=== PATIENT | female | born 1960 | race Caucasian/White ===

== ENCOUNTER → 2017-09-07 | Outpatient (CLI) | payer OTHER ==
[~2017-09-07] MED LIST: AMBI10TA PO; AMLO5TAB2 PO; BUPR150CR PO; DICL75TA PO; ECASA81 PO; ESTRGEL TOPICAL; HYDR12.56 PO; LEVO.15 PO; OXYC1TAB63 PO; PROG100C PO; PROM25TA10 PO; ROSU1TAB6 PO
[2017-09-07 11:23] LABS: AUTOMATED NEUTROPHIL # 4.2 TH/MM3 (1.8-7.7); BASOPHIL # 0.1 TH/MM3 (0-0.2); BASOPHIL % 0.8 % (0.0-2.0); EOSINOPHIL # 0.1 TH/MM3 (0-0.4); EOSINOPHIL % 0.9 % (0.0-4.0); HEMATOCRIT 40.6 % (35.0-46.0); HEMOGLOBIN 13.6 GM/DL (11.6-15.3); LYMPH % 28.6 % (9.0-44.0); MEAN CELL VOLUME 89.7 FL (80.0-100.0); MEAN CORPUSCULAR HEMOGLOBIN 30.1 PG (27.0-34.0); MEAN CORPUSCULAR HGB CONC 33.5 % (32.0-36.0); MEAN PLATELET VOLUME 7.3 FL (7.0-11.0); MONO % 7.6 % (0.0-8.0); MONOCYTE # 0.5 TH/MM3 (0-0.9); NEUT % 62.1 % (16.0-70.0); PLATELET COUNT 320 TH/MM3 (150-450); RED BLOOD COUNT 4.53 MIL/MM3 (4.00-5.30); RED CELL DISTRIBUTION WIDTH 12.9 % (11.6-17.2); WHITE BLOOD COUNT 6.8 TH/MM3 (4.0-11.0)
[2017-09-07 11:29] LABS: BACTERIA, URINE RARE /hpf; BILIRUBIN, URINE NEG (NEG); BLOOD, URINE NEG (NEG); GLUCOSE,URINE NEG (NEG); HYALINE CAST, URINE 1 /lpf (RARE); KETONE, URINE NEG (NEG); MUCUS URINE FEW /lpf (OCC); NITRITE,URINE NEG (NEG); SQUAMOUS EPITHELIAL CELL URINE 1 /hpf (0-5); URINE COLOR YELLOW (YELLW/STRAW); URINE LEUKOCYTE ESTERASE NEG (NEG)
[2017-09-07 11:38] LABS: BICARBONATE 30.9 MEQ/L (21.0-32.0); CALCIUM 8.8 MG/DL (8.5-10.1); CREATININE 0.84 MG/DL (0.50-1.00)
--- NOTE | 2017-09-08 09:42 | EKG ---
Date Performed: 09/07/2017 Time Performed: 10:56:57 PTAGE: 56 years EKG: Sinus rhythm POSSIBLE ANTERIOR MYOCARDIAL INFARCTION, OF INDETERMINATE AGE ABNORMAL ECG NO PREVIOUS TRACING DOCTOR: Viktor Gamino Interpretating Date/Time 09/08/2017 09:38:37
== END ==
LOC: CPRE 10:28
PROVIDERS: ATTEND Obstetrics & Gynecology
DX: Z01.812 Encounter for preprocedural laboratory examination (principal); Z01.810 Encounter for preprocedural cardiovascular examination; D25.9 Leiomyoma of uterus, unspecified
CPT/HCPCS: 36415; 80048; 81001; 85025; 93005

== ENCOUNTER 2017-09-13 05:34 | Observation (INO) | payer OTHER ==
--- NOTE | 2017-09-12 09:59 | MH ---
cc: Jessika Duran MD DATE OF ADMISSION: 09/13/2017 PREOPERATIVE DIAGNOSIS: Multiple small symptomatic fibroid, desirous of LAVH-BSO so that she can proceed with hip placements. HISTORY OF PRESENT CONDITION: The patient is a very pleasant 56-year-old white female, para 2, with ongoing heavy jo/postmenopausal bleeding and pelvic pressure who desires definitive therapy. She has to get a hip replacement in the eminent future and wants to have this procedure done first before she has an artificial joint. She is to Dr. Xu Diaz. She has had 2 children, both healthy. Her general health is excellent. She does not report any significant symptoms of incontinence or problems with her bowel habits. Her family history is essentially noncontributory. She has had normal Pap smears, normal mammography. Her medication is the EstroGel pump, Ambien, amlodipine 5 mg for mild hypertension, aspirin and diclofenac, both of which she has not been taking recently. She also takes progesterone right now while she is still with her uterus, a mild lipid lowering agent, Synthroid 150 mcg and Wellbutrin. As mentioned, she exercises regularly. She has had a colonoscopy in 2013. She has a history of a significant cardiac murmur, and her EKG is discussed with Dr. Toro Summers, and it was felt with her clinical lack of symptomatology she was a candidate for surgery. PRIMARY CARE PROVIDER: Adriana Daigle MD PHYSICAL EXAMINATION: GENERAL: She is a well developed, well nourished white female in no acute distress. VITAL SIGNS: Her height is 5 feet 5 inches. Her weight is 156. Her blood pressure is 140/70. HEENT AND NECK: She has no thyroid enlargement. LUNGS: Clear. HEART: Rate and rhythm are regular. BREASTS: Without dominant mass, nipple discharge, skin retraction or adenopathy. ABDOMEN: Benign. She has no CVA tenderness, no adenopathy, no hernias or masses. GYNECOLOGIC: Perineum is estrogenized. Vault is elevated. Cervix is multiparous. Uterus is mildly enlarged and irregular. Adnexa are not palpable. Guaiac is negative. EXTREMITIES: Unremarkable. IMPRESSION: Symptomatic perimenopausal uterine fibroids, desirous of definitive therapy. Risks, benefits, expectations, alternatives have been described in detail. Please note, she does have also, when I listed to her heart, a 2-3/6 ascending murmur over the mitral valve, consistent with her clinical history. PLAN: To proceed with a supracervical hysterectomy. This is in contrast to the original decision to do an LAVH-BSO. This was after additional consulting with Ivania regarding her desire to keep her cervix and minimize her recovery. She has never had any abnormal cervical Pap smears. The fibroids in question are submucosal and small. We have talked about the concerns of morcellation and intend to either use a bag intra-abdominally or to morcellate the uterus as it has been moved from the slightly enlarged left lower quadrant incision outside the abdomen with a non powered morcellate technique. Risks, benefits, expectations and alternatives have been described in detail. She has signed consent and is scheduled for Tuesday, 09/13. Thank you very much. Jessika Duran MD PPC/DL , 09:19 AM , 09:57 AM
[~2017-09-13] VITALS: Ht 165.1 cm; Wt 69.7 kg
[~2017-09-13 05:34] MED LIST changes: -OXYC1TAB63 PO; -PROM25TA10 PO
[2017-09-13] MEDS ORDERED: SODIUM CHLORID 0.9% 500 ML IV PRN (06:15)
[2017-09-13] MEDS ORDERED: ACETAMINOPHEN 1000 MG/100 ML 100 ML IV PRN (06:15)
[2017-09-13] MEDS ORDERED: POVIDONE IODINE 5% (ANTISEPSIS KIT) 4 APPLICATIONS EACH NARE PRN (06:15)
[2017-09-13] MEDS ORDERED: LACTATED RINGER'S 1000 ML IV PRN (06:15)
[2017-09-13] MEDS ORDERED: CHLORHEXIDINE GLUCONATE 2 % 1 PACK (2 CLOTHS) TOPICAL PRN (06:15)
[2017-09-13] MEDS ORDERED: METOPROLOL TARTRATE 25 MG TAB PO PRN (06:15)
[2017-09-13] MEDS ORDERED: ACETAMINOPHEN 1000 MG/100 ML 0 ML IV ONE (06:58)
[2017-09-13] MEDS ORDERED: fentaNYL CITRATE 250 MCG/5 ML AMP ONE (06:59)
[2017-09-13] MEDS ORDERED: VASOPRESSIN 20 UNITS/ML VIAL ONE (07:13)
[2017-09-13] MEDS ORDERED: LIDOCAINE 1%/EPINEPHrine 1:100,000 SOLN 30 ML VIAL ONE (07:13)
[2017-09-13] MEDS ORDERED: MIDAZOLAM HCL 2 MG/2 ML VIAL ONE (07:27)
[2017-09-13] MEDS ORDERED: BUPIVACAINE LIPOSOME PF 1.3% 20 ML VIAL ONE (07:38)
[2017-09-13] MEDS ORDERED: BUPIVACAINE/EPINEPHRINE 0.25% PF 10 ML VIAL ONE (07:39)
[2017-09-13] MEDS ORDERED: ESTROGENS CONJUGATED VAG CREA 15 APPL/30 GM TUBE ONE (07:50)
[2017-09-13] MEDS ORDERED: SODIUM CHLORIDE 0.9% 20 ML VIAL ONE (07:50)
[2017-09-13] MEDS ORDERED: SODIUM CHLORIDE 0.9% FLUSH 10 ML FLUSH IV FLUSH PRN (11:15)
[2017-09-13] MEDS ORDERED: ONDANSETRON HCL 4 MG/2 ML VIAL IVP PRN ×2 (11:15)
[2017-09-13] MEDS: DOCUSATE SODIUM 100 MG CAP PO SCH ×2 (11:15→22:31)
--- NOTE | 2017-09-13 11:16 | PD.OP ---
Operative Report Date of Surgery: Sep 13, 2017 Preoperative Diagnosis: perimenopausal bleeding due to submucosal fibroids other intramural and subserosal fibroids Postoperative Diagnosis: large vascular peduculated fibroid better than uterus Procedure: LAVHBSO enterocele repair cystoscopy bilateral retroperitoneal dissection Anesthesia: GET Surgeon: Jessika Duran Experimental Technician(s): Kerry Operation and Findings: very large and vasculer fibroid of concern subtotal approach contraindicated vascular/vessicular structures tracking along both IP ligaments requiring retroperintoneal dissections to excise completely back bleeding from fibroids during Lscope part of case Uterus morcellated at vaginal opening as it presented to the operative field post hyst lscope showed no bleeding cystoscopy showed normal bladder and good flow from both ureters urine clear EBL 200 Jessika Duran MD Sep 13, 2017 11:16
[2017-09-13] MEDS ORDERED: DO NOT ADM ANY ANTICOAGULANT DRUGS PRN (11:34)
[2017-09-13] MEDS ORDERED: PILL SPLITTER OTHER PRN (11:45)
[2017-09-13] MEDS ORDERED: ONDANSETRON HCL 4 MG/2 ML VIAL IV ONE (12:00)
[2017-09-13] MEDS ORDERED: GLYCOPYRROLATE 1 MG/5 ML SYRINGE IV PUSH ONE (12:00)
[2017-09-13] MEDS ORDERED: LACTATED RINGER'S 1000 ML INJ 2,000 ML IV ONE (12:00)
[2017-09-13] MEDS ORDERED: oxyCODONE/ACETAMINOPHEN 5 MG/325 MG TAB PO PRN (12:00)
[2017-09-13] MEDS ORDERED: NEOSTIGMINE 5 MG/5 ML SYRINGE IV PUSH ONE (12:00)
[2017-09-13] MEDS ORDERED: LIDOCAINE HCL 1% PF 5 ML SYRINGE OTHER ONE (12:00)
[2017-09-13] MEDS ORDERED: SODIUM CHLORIDE 0.9% 20 ML VIAL IV ONE (12:00)
[2017-09-13] MEDS ORDERED: DEXAMETHASONE SOD PHOS 4 MG/ML VIAL IV ONE (12:00)
[2017-09-13] MEDS ORDERED: LORazepam 0.5 MG TAB PO PRN (12:00)
[2017-09-13] MEDS ORDERED: diphenhydrAMINE HCL 25 MG CAP PO PRN (12:00)
[2017-09-13] MEDS ORDERED: ONDANSETRON INJ 8 MG in DEXTROSE 5% IN WATER INJ 50 ML IV PUSH PRN ×2 (12:00)
[2017-09-13] MEDS ORDERED: KETOROLAC TROMETHAMINE 30 MG/ML (IVP) VIAL IV PUSH ONE (12:00)
[2017-09-13] MEDS ORDERED: PROPOFOL 200 MG/20 ML AMP IV ONE (12:00)
[2017-09-13] MEDS ORDERED: ePHEDrine/NS 25 MG/5 ML SYRINGE IV ONE (12:00)
[2017-09-13] MEDS ORDERED: ESTRADIOL 0.1 MG/24 HR PATCH T-DERMAL ONE (12:00)
[2017-09-13] MEDS ORDERED: ROCURONIUM INJ 50 MG/5 ML SYRINGE IV PUSH ONE (12:00)
[2017-09-13] MEDS ORDERED: PHENYLEPH/NS 1000 MCG/10 ML SYR IV ONE (12:00)
[2017-09-13] MEDS ORDERED: ceFAZolin INJ 1,000 MG VIAL IV ONE (12:00)
--- NOTE | 2017-09-13 12:21 | MP ---
cc: Jessika Duran MD DATE OF OPERATION: 09/13/2017 PREOPERATIVE DIAGNOSIS: Perimenopausal bleeding and known submucosal intramural and subserosal fibroids. POSTOPERATIVE DIAGNOSIS: Perimenopausal bleeding and known submucosal intramural and subserosal fibroids with very large pedunculated right fundal fibroid. PROCEDURE: Laparoscopic assisted vaginal hysterectomy with bilateral salpingo-oophorectomy with bilateral retroperitoneal dissections, enterocele obliteration and cystoscopy. ANESTHESIA: General. SURGEON: Dr. Duran. MIDDLEWARE CONSULTANT: Kerry FINDINGS: Examination under anesthesia revealed what is felt to be a small globular uterus that had some mild ascent. Upon entering the peritoneal cavity, it was noted that there was a large fibroid bigger than the uterus coming off the uterus on the right cornua area. This was highly vascular. There were varicosities with vesicles that extended into the infundibulopelvic ligaments on each side. It was felt that these needed to be removed with the specimen, so retroperitoneal dissections on each side guaranteed removal of this portion of the IP ligament in its entirety with avoiding the ureters. It was not felt that any morcellation of this uterus was appropriate internally and that the cervix should not be left, so the procedure was then converted to LAVH. Successive pedicles were taken down to the level of the uterosacrals with some considerable back bleeding from the fibroids when grasped for traction. When attention was directed below, the remainder of the hysterectomy removing the uterus from its attachments was completed expediently but some time was taken to remove the uterus through the vaginal vault. Indeed, it was eventually bivalved to remove. The enterocele was obliterated, the cuff closed and when the abdomen was reevaluated, the retroperitoneal dissections were hemostatic. The cuff was closed with the enterocele obliteration and bowel was away from any of the field. Irrigation was performed, and then visualization while removal of the pneumoperitoneum was performed. At this point, the bladder was filled, the catheter removed and the scope placed in the bladder, showing no iatrogenic or intrinsic pathology with flow from both ureteral orifices. The Mclean was replaced. The umbilical hernia was repaired at the closure site in the midline, and the other 2 sites were closed with a single stitch. Estimated blood loss was 200 mL. Sponge, instrument, needle counts were correct. She tolerated the procedure well. PROCEDURE: Patient was taken to the operating room, identified as Ivania Diaz. She had received gabapentin and Ofirmev, 2 g of Ancef and antiemetic prior to coming into the operating room. A timeout was performed with all in attendance. This was after she was placed under general anesthesia by Dr. Mattson. [facility], so she was comfortable with her positioning, and then she was prepped and draped in the usual sterile fashion with Mclean catheter placed sterilely by the surgeon. A single-tooth tenaculum was placed on the cervix, an acorn tenaculum placed on the os, and attention directed to the abdomen. The umbilical hernia was noted. The incision was made inferior to this and the 5 mm trocar and sleeve placed under direct visualization. A pneumoperitoneum was created and systematic evaluation of the abdominal and pelvic contents was performed with the findings as noted above. Right round ligament was transected close to the sidewall to encompass majority of the broad ligament and then this was taken down to the lower uterine segment where the bladder was scarred densely against the lower uterine segment. Carefully dissection in layers was performed to push the bladder down inferiorly and medially. Then attention was directed to the right sidewall. A window peritoneum was incised, and the infundibulopelvic ligament was skeletonized on this side all the way back near to the pelvic brim where the varicosities had ceased to exist, and this was gently elevated, isolated and transected. There was some oozing from this, and the Harmonic scalpel was switched out, and then this was easily addressed, and successful pedicles were then taken down to the level of the uterosacral. Back bleeding was noted from traction on the fibroids. This was repeated on the left side, which again showed the varicosities traveling up the infundibulopelvic ligament with these vesicles up close to the pelvic brim. The retroperitoneal dissection was performed to make sure no other structures were involving in the pedicle creation, which was then transected, and then this was taken down to where the round ligament on that side had been transected, and this was taken down to the uterosacral. The bladder was sharply dissected downward, and then attention was directed to below. The cervix was circumcised with the Bovie on cutting after being infiltrated with lidocaine, and the posterior cul-de-sac was entered sharply. The anterior cul-de-sac was entered with a little bit more difficulty but bladder was intact and preserved. Successive pedicles were clamped, cut and suture ligated, the first being the uterosacrals, which were tagged for later plication, and then successive pedicles were taken up to where the uterus was entirely free in the abdominal cavity. Some time was spent attempting to remove this uterus through the vaginal outlet. It was necessary to cut the uterus in the midline in half and remove some of the intramural fibroids from below but eventually was removed in its entirety. The peritoneal closure to obliterate the enterocele was performed in the classic [place] fashion. The cuff was closed in the vertical fashion to facilitate vaginal length. Attention was redirected to the abdomen where the pneumoperitoneum was reinstilled and copious irrigation was performed. The retroperitoneal dissections were all clean with good hemostasis. The enterocele closure was clean. The bowel was far away from surgical field, and pneumoperitoneum was released under direct visualization, and then the umbilical hernia was reapproximated in standard fashion and the skin was closed with Monocryl. Then attention was directed below where the bladder was filled with the remaining fluid from the suction stock hanger and the laparoscope placed in the bladder with systematic evaluation showing a healthy bladder with good ureteral flow from both sides. The Mclean catheter was then replaced. She was placed in dorsal supine position, awoken, and taken to the recovery room in stable condition. MD ROSENDO Burns/CRISTY , 11:32 AM , 12:20 PM MARICEL
[2017-09-13 12:45] VITALS: BP 111/61; PULSE 91; RESP 18; TEMP 97.6
[2017-09-13] MEDS: HYDROmorphone HCL PF 2 MG/ML VIAL IV PUSH PRN ×2 (14:03→18:11)
[2017-09-13] MEDS ORDERED: PROMETHAZINE HCL 25 MG TAB PO PRN (14:30)
[2017-09-13] MEDS ORDERED: LACTATED RINGER'S 1000 ML INJ 1,000 ML IV SCH (14:30)
[2017-09-13] MEDS ORDERED: ONDANSETRON ODT 4 MG TAB PO PRN (14:30)
[2017-09-13 15:55] VITALS: BP 121/68; PULSE 89; RESP 18; TEMP 98.1
--- NOTE | 2017-09-13 17:35 | HHI.PR ---
Subjective Remarks Doing well, pain is well controlled, eating well. having significant nausea and some burning around catheter Objective Vital Signs Vital Signs Date Time Temp Pulse Resp B/P (MAP) Pulse Ox O2 Delivery O2 Flow Rate FiO2 09/13/17 17:23 Nasal Cannula 1.50 09/13/17 12:45 97.6 91 18 111/61 (78) 09/13/17 12:30 97.7 92 18 105/60 (75) 98 Nasal Cannula 2 09/13/17 12:15 82 18 104/59 (74) 100 Nasal Cannula 2 09/13/17 12:00 91 18 106/55 (72) 100 Nasal Cannula 2 09/13/17 11:45 95 17 105/65 (78) 100 Nasal Cannula 2 09/13/17 11:32 97.5 95 17 108/59 (75) 100 Nasal Cannula 2 09/13/17 06:15 97.4 80 20 140/78 (98) 100 I/O 09/12/17 09/12/17 09/12/17 09/13/17 09/13/17 09/13/17 07:00 15:00 23:00 07:00 15:00 23:00 Intake Total 2250 ml Output Total 750 ml Balance 1500 ml Intake IV Total 2250 ml Output Urine Total 550 ml Estimated Blood Loss 200 ml Objective Remarks color great Chest is clear, regular rate and rhythm. Abdomen is soft and non-distended. Incisions clean and dry. perineum scant drainage/bleeding urine clear and copious Ext no CCE. A/P Assessment and Plan Night of surgery Doing well Home in am once nausea resolved and return to office in two weeks. counseled on activity explained surgery with photographs Jessika Duran MD Sep 13, 2017 17:35
[2017-09-13 19:28] VITALS: BP 102/51; PULSE 96; RESP 18; TEMP 97.8; O2SAT 94
[2017-09-13] MEDS: SODIUM CHLORIDE 0.9% FLUSH 10 ML FLUSH IV FLUSH SCH (21:00)
[2017-09-13] MEDS ORDERED: ZOLPIDEM TARTRATE 5 MG TAB PO PRN (21:00)
[2017-09-13] MEDS: oxyCODONE/ACETAMINOPHEN 5 MG/325 MG TAB PO PRN (22:31)
[2017-09-13 23:44] VITALS: BP 97/41; PULSE 98; RESP 16; TEMP 98.1; O2SAT 95
[2017-09-14] MEDS: oxyCODONE/ACETAMINOPHEN 5 MG/325 MG TAB PO PRN (05:16)
[2017-09-14 05:24] VITALS: BP 99/56; PULSE 91; RESP 17; TEMP 98.3; O2SAT 93; O2SAT 95
[2017-09-14 05:49] LABS: AUTOMATED NEUTROPHIL # 5.4 TH/MM3 (1.8-7.7); BASOPHIL % 0.3 % (0.0-2.0); EOSINOPHIL % 0.1 % (0.0-4.0); HEMATOCRIT 28.6 % (35.0-46.0); LYMPH % 22.2 % (9.0-44.0); LYMPHOCYTE # 1.8 TH/MM3 (1.0-4.8); MEAN CELL VOLUME 89.4 FL (80.0-100.0); MEAN CORPUSCULAR HEMOGLOBIN 31.3 PG (27.0-34.0); MEAN PLATELET VOLUME 7.1 FL (7.0-11.0); MONO % 9.4 % (0.0-8.0); MONOCYTE # 0.7 TH/MM3 (0-0.9); PLATELET COUNT 248 TH/MM3 (150-450); RED CELL DISTRIBUTION WIDTH 13.2 % (11.6-17.2); WHITE BLOOD COUNT 7.9 TH/MM3 (4.0-11.0)
[2017-09-14 06:18] LABS: CALCIUM 6.9 MG/DL (8.5-10.1); CREATININE 0.64 MG/DL (0.50-1.00)
[2017-09-14] MEDS: SODIUM CHLORIDE 0.9% FLUSH 10 ML FLUSH IV FLUSH SCH (07:07)
[2017-09-14 08:00] VITALS: BP 94/52; PULSE 71; RESP 16; TEMP 98.1; O2SAT 96
[2017-09-14] MEDS ORDERED: PROM25TA10 PO (08:36)
[2017-09-14] MEDS ORDERED: OXYC1TAB63 PO (08:36)
[2017-09-14] MEDS: DOCUSATE SODIUM 100 MG CAP PO SCH (10:57)
== END 2017-09-14 11:25 | disposition home or self-care (01) ==
LOC: HSDC 05:34 → HSDI 11:11 → H1EA 12:42
PROVIDERS: ADMIT Obstetrics & Gynecology; ATTEND Obstetrics & Gynecology
DX: N92.4 Excessive bleeding in the premenopausal period (principal); D25.0 Submucous leiomyoma of uterus; D25.1 Intramural leiomyoma of uterus; D25.2 Subserosal leiomyoma of uterus; K42.9 Umbilical hernia without obstruction or gangrene; N81.5 Vaginal enterocele; I10 Essential (primary) hypertension; K21.9 Gastro-esophageal reflux disease without esophagitis
CPT/HCPCS: 00840; 57268; 58554; 80048; 84155; 85025; 86850; 86900; 86901; 88307; 94150; 96374; 96376; C9290; G0378; J0131; J0690; J1100; J1170; J1885; J2250; J2370; J2405; J2710; J3010; J7120; Q0169

== ENCOUNTER → 2017-09-16 | Outpatient (CLI) | payer OTHER ==
[~2017-09-16] MED LIST changes: +OXYC1TAB63 PO; -PROG100C PO; +PROM25TA10 PO
[2017-09-16 15:35] LABS: HEMATOCRIT 31.2 % (35.0-46.0); HEMOGLOBIN 10.9 GM/DL (11.6-15.3); MEAN CELL VOLUME 88.8 FL (80.0-100.0); MEAN CORPUSCULAR HGB CONC 34.9 % (32.0-36.0); MEAN PLATELET VOLUME 7.3 FL (7.0-11.0); PLATELET COUNT 299 TH/MM3 (150-450); RED BLOOD COUNT 3.52 MIL/MM3 (4.00-5.30); RED CELL DISTRIBUTION WIDTH 13.2 % (11.6-17.2); WHITE BLOOD COUNT 7.7 TH/MM3 (4.0-11.0)
[2017-09-16 16:07] LABS: BICARBONATE 32.1 MEQ/L (21.0-32.0); CREATININE 0.56 MG/DL (0.50-1.00)
== END ==
LOC: ELAB 11:35
PROVIDERS: ATTEND Obstetrics & Gynecology
DX: R53.81 Other malaise (principal); R53.83 Other fatigue; Z13.0 Encounter for screening for diseases of the blood and blood-forming organs and certain disorders involving the immune mechanism
CPT/HCPCS: 36415; 80048; 85027

== ENCOUNTER → 2017-11-14 | Outpatient (CLI) | payer OTHER ==
[~2017-11-14] MED LIST changes: +PRIL20TA2 PO
[2017-11-14 10:04] LABS: HEMATOCRIT 38.1 % (35.0-46.0); HEMOGLOBIN 12.8 GM/DL (11.6-15.3); MEAN CORPUSCULAR HEMOGLOBIN 29.6 PG (27.0-34.0); MEAN CORPUSCULAR HGB CONC 33.6 % (32.0-36.0); MEAN PLATELET VOLUME 7.7 FL (7.0-11.0); PLATELET COUNT 319 TH/MM3 (150-450); RED BLOOD COUNT 4.33 MIL/MM3 (4.00-5.30); WHITE BLOOD COUNT 6.6 TH/MM3 (4.0-11.0)
[2017-11-14 10:09] LABS: BILIRUBIN, URINE NEG (NEG); BLOOD, URINE NEG (NEG); GLUCOSE,URINE NEG (NEG); KETONE, URINE NEG (NEG); MUCUS URINE MOD /lpf (OCC); NITRITE,URINE NEG (NEG); PH, URINE 5.5 (5.0-8.5); URINE COLOR YELLOW (YELLW/STRAW); URINE LEUKOCYTE ESTERASE NEG (NEG)
[2017-11-14 10:14] LABS: PROTHROMBIN TIME - PATIENT 10.4 SEC (9.8-11.6)
[2017-11-14 10:29] LABS: BICARBONATE 29.9 MEQ/L (21.0-32.0); CALCIUM 8.7 MG/DL (8.5-10.1); CREATININE 0.77 MG/DL (0.50-1.00)
== END ==
LOC: CPRE 09:09
PROVIDERS: ATTEND Orthopaedic Surgery
DX: Z01.812 Encounter for preprocedural laboratory examination (principal); M16.11 Unilateral primary osteoarthritis, right hip; M79.609 Pain in unspecified limb; I10 Essential (primary) hypertension
CPT/HCPCS: 36415; 80048; 81001; 85027; 85610; 85730

== ENCOUNTER 2017-11-29 05:11 | Inpatient (IN) | END 2017-11-30 14:37 | disposition home health service (06) | DRG 470 | DX: M16.11 Unilateral primary osteoarthritis, right hip (principal); I05.2 Rheumatic mitral stenosis with insufficiency; I10 Essential (primary) hypertension; K21.9 Gastro-esophageal reflux disease without esophagitis; E78.5 Hyperlipidemia, unspecified; E03.9 Hypothyroidism, unspecified; E04.9 Nontoxic goiter, unspecified; F32.9 Major depressive disorder, single episode, unspecified; Z79.82 Long term (current) use of aspirin ==